=== PATIENT | female | born 1990 | race Caucasian/White ===

== ENCOUNTER → 2024-12-09 15:24 | Outpatient (REF) | payer OTHER, SELFPAY | LOC: PNTC 15:24 | PROVIDERS: ATTENDING PHYSICIAN Obstetrics & Gynecology | DX: Z36.0 Encounter for antenatal screening for chromosomal anomalies (principal); Z36.82 Encounter for antenatal screening for nuchal translucency | CPT/HCPCS: 36415; 76801; 76813 ==

== ENCOUNTER → 2025-01-04 16:02 | Outpatient (REF) | payer OTHER, SELFPAY | LOC: PNTC 16:02 | PROVIDERS: ATTENDING PHYSICIAN Obstetrics & Gynecology | DX: O09.812 Supervision of pregnancy resulting from assisted reproductive technology, second trimester (principal); O09.522 Supervision of elderly multigravida, second trimester; O99.212 Obesity complicating pregnancy, second trimester; E66.9 Obesity, unspecified | CPT/HCPCS: 76805 ==

== ENCOUNTER → 2025-02-08 15:25 | Outpatient (REF) | payer OTHER, SELFPAY | LOC: PNTC 15:25 | PROVIDERS: ATTENDING PHYSICIAN Obstetrics & Gynecology | DX: Z36.3 Encounter for antenatal screening for malformations (principal); Z36.86 Encounter for antenatal screening for cervical length; O09.812 Supervision of pregnancy resulting from assisted reproductive technology, second trimester; O09.522 Supervision of elderly multigravida, second trimester; O99.212 Obesity complicating pregnancy, second trimester; E66.9 Obesity, unspecified | CPT/HCPCS: 76811; 76817 ==